=== PATIENT | female | born 2005 | race Caucasian/White ===

== ENCOUNTER 2023-03-01 14:24 | Outpatient (OUT) | payer OTHER, SELFPAY ==
[2023-03-01 14:56] LABS: Basophils Percent Auto 0.6 % (0.2-2.0); Eosinophils Absolute Auto 0.1 10^3/uL (0.0-0.7); Eosinophils Percent Auto 2.6 % (0.9-7.0); Hematocrit 38.5 % (36.0-48.0); Hemoglobin 12.8 g/dL (12.0-16.0); Immature Granulocytes Abs Auto 0.01 10^3/uL (0.00-0.03); Immature Granulocytes Pct Auto 0.2 % (0.0-0.5); Lymphocytes Absolute Auto 1.5 10^3/uL (1.2-3.8); Lymphocytes Percent Auto 30.6 % (20.5-60.0); Mean Corpuscular HGB Conc 33.2 g/dL (29.9-35.2); Mean Corpuscular Hemoglobin 28.4 pg (26.7-34.0); Mean Corpuscular Volume 85.4 fL (81.0-99.0); Mean Platelet Volume 10.3 fL (9.5-13.5); Monocytes Absolute Auto 0.3 10^3/uL (0.3-0.8); Monocytes Percent Auto 6.6 % (1.7-12.0); Neutrophils Percent Auto 59.4 % (43.0-75.0); Platelet Count 311 10^3/uL (150-450); Red Blood Count 4.51 10^6/uL (4.20-5.40); Red Cell Distribution Width 12.4 % (11.0-15.0)
[2023-03-01 15:32] LABS: Estimated Average Glucose 97 mg/dL
[2023-03-01 16:02] LABS: Free T4 1.02 ng/dL (0.78-1.34)
[2023-03-01 16:11] LABS: HCG Quantitative <1 mIU/mL
[2023-03-03 09:12] LABS: FSH 5.9 mIU/mL (.); Luteinizing Hormone(LH) 24.8 mIU/mL (.)
[2023-03-05 01:09] LABS: DHEA, Serum 287 ng/dL (40-491)
== END 2023-03-01 14:25 | disposition home or self-care (01) ==
LOC: LAB 14:34
PROVIDERS: Visit Provider Obstetrics & Gynecology
DX: N92.6 Irregular menstruation, unspecified (principal); Z76.89 Persons encountering health services in other specified circumstances
CPT/HCPCS: 36415; 82626; 82627; 83001; 83002; 83036; 84439; 84443; 84702; 85025

== ENCOUNTER 2023-03-15 12:53 | Outpatient (OUT) | payer OTHER, SELFPAY ==
--- NOTE | 2023-03-15 12:55 | US_ITS ---
The [address] [address] Patient Name: STEPHEN ALVARADO MRN: [id number] date: 2005 Sex: F Assigned Patient Location: US Current Patient Location: US Accession/Order Number: [id number] Exam Date: 03/15/2023 12:56 Report Date: 03/16/2023 10:32 At the request of: SHERRELL NAVARRO Procedure: US pelvis EXAMINATION: US pelvis HISTORY: IRREGULAR MENSTRAL CYCLES COMPARISON: No relevant comparison available. FINDINGS: The uterus is normal in size, contour and echotexture, anteverted, anteflexed. Uterus measures 7.2 x 3.6 x 4.5 cm. No focal myometrial mass The endometrium measures 4 mm, normal. The right ovary measures 5.7 x 2.8 x 4.3 cm. Doppler flow could not be obtained. Color flow was observed. Area of anechoic echogenicity measuring 3.2 cm, simple cyst favored The left ovary measures 3.0 x 2.3 x 3.2 cm. Normal color and Doppler flow The patient refused transvaginal images No free fluid US/US pelvis IMPRESSION: 3.2 cm right ovarian simple cyst Electronically authenticated by: CRUZITO HORNE Date: 03/16/2023 10:32
== END 2023-03-15 12:54 | disposition home or self-care (01) ==
LOC: US 12:53
PROVIDERS: Visit Provider Obstetrics & Gynecology
DX: N92.6 Irregular menstruation, unspecified (principal); Z76.89 Persons encountering health services in other specified circumstances; N83.291 Other ovarian cyst, right side
CPT/HCPCS: 76856